=== PATIENT | female | born 1940 | race Caucasian/White ===

== ENCOUNTER 2016-11-11 08:04 | Emergency (ER) | payer OTHER ==
[~2016-11-11] VITALS: Ht 162.6 cm; Wt 91.0 kg
[~2016-11-11 08:04] MED LIST: DENO60SO IV; ELQ25 PO; SIMV40TA2 PO; TPRSR50 PO; VALS1TAB33 PO
[2016-11-11 08:15] VITALS: O2SAT 89; Ht 162.6 cm; Wt 91.0 kg
[2016-11-11 08:31] LABS: BASO % 0.2 %; BASO ABS # 0.02 K/uL (0-0.2); COMPLETE YES; EOS % 1.3 %; HEMATOCRIT 49.4 % (37-47); IG% 0.4 %; LYMPH % 19.8 %; LYMPH ABS # 2.51 K/uL (1.2-3.4); MEAN CELL VOLUME 95.9 fL (80-100); MEAN CORPUSCULAR HEMOGLOBIN 31.3 pg (25-34); MEAN CORPUSCULAR HGB CONC 32.6 g/dl (32-36); MEAN PLATELET VOLUME 10.4 fL (7.4-10.4); MONO % 4.8 %; NEUT % 73.5 %; PLATELET COUNT 277 K/uL (130-400); RED BLOOD COUNT 5.15 M/uL (4.2-5.4); WHITE BLOOD COUNT 12.68 K/uL (4.8-10.8)
[2016-11-11 08:46] LABS: BUN/CREATININE RATIO 15.6 (10-20); CALCIUM 9.5 mg/dl (8.5-10.1); MAGNESIUM 2.2 mg/dl (1.8-2.4)
--- NOTE | 2016-11-11 08:52 | DIAGNOSTIC IMAGING REPORT ---
CHEST ONE VIEW PORTABLE HISTORY: 76 years-old Female EVALUATE WEAKNESS acute weakness. Initial exam. COMPARISON: Chest radiograph 09/27/2015 TECHNIQUE: Portable upright AP view of the chest FINDINGS: Cardiac silhouette is moderately enlarged, unchanged. There is atherosclerosis of the aorta. Pulmonary vascular congestion is present without overt pulmonary edema. There is no pneumothorax. Coarsened interstitial opacities are present within the lung bases suggesting some scarring with ill-defined hazy right basilar opacities noted suggesting atelectasis. The bones are grossly intact. IMPRESSION: 1. Cardiomegaly with pulmonary vascular congestion and chronic background interstitial coarsening. No overt pulmonary edema. 2. Subsegmental right basilar opacities suggest atelectasis. The above report was generated using voice recognition software. It may contain grammatical, syntax or spelling errors. Electronically signed by: Seamus Saldana M.D. 11/11/2016 8:50 AM Dictated Date/Time: 11/11/2016 8:49 AM
[2016-11-11 08:55] LABS: PROTHROMBIN TIME (PATIENT) 10.8 SECONDS (9.0-12.0)
[2016-11-11 08:57] LABS: THYROID STIMULATING HORMONE 3.8 uIu/ml (0.300-4.500)
[2016-11-11] MEDS ORDERED: FUROSEMIDE 40 MG/4 ML VIAL IV STA (09:45)
[2016-11-11] MEDS ORDERED: CEFTRIAXONE SOD INJ 1 GM ADDVIAL IV STA (09:45)
[2016-11-11] MEDS ORDERED: NITROGLYCERIN OINT 2% 1GM PACKET EXT ONE (09:45)
[2016-11-11] MEDS ORDERED: ALBUT/IPRATROP 3MG/0.5MG NEB 3 ML VIAL INH STA (09:45)
--- NOTE | 2016-11-11 10:43 | EMERGENCY ROOM VISIT NOTE ---
History Report prepared by Geremias: Seymour Martell Under the Supervision of: Dr. Alphonse Price M.D. First contact with patient: 08:22 Chief Complaint: SHORTNESS OF BREATH Stated Complaint: SHORTNESS OF BREATH/HEADACHE Nursing Triage Summary: Patient woke up today with a headache and reports she does not normally get headaches. Has also been feeling short of breath for the last 2-3 days. Has been having a productive cough of hernandez sputum. History of Present Illness The patient is a 76 year old female who presents to the Emergency Room with complaints of constant shortness of breath for the past couple of days. The patient additionally is complaining of a headache that started last night. The patient states that she has a history of a CVA, and she has not had a headache since then, and she is worried. She additionally has a cough, and she vomited in the ambulance prior to arrival. She states that she has been coughing up mucous, and she states that she is not normally on oxygen or inhalers at home. The patient has a history of hypertension and A-fib, and left heart catheterization. She states that she is on eliquis. She denies any history of pneumonia or other lung issues. She states that she used to smoke, and she quit in May. Pt denies LOC, fevers, chills, diaphoresis, visual changes, neck pain , chest pain, abdominal pain, back pain, melena, hematochezia, urinary symptoms , numbness, weakness, lymphadenopathy, rash, or other complaints. Source of History: patient Onset: 2-3 days ago Position: other (global ) Quality: other (shortness of breath) Timing: constant Associated Symptoms: + headache, + cough, + vomiting Review of Systems See HPI for pertinent positives and negatives. A total of ten systems were reviewed and were otherwise negative. Past Medical & Surgical Medical Problems: (1) No history of respiratory disorder Family History No pertinent family history Social History Smoking Status: Former Smoker Drug Use: none Marital Status: Occupation Status: retired Current/Historical Medications Scheduled Apixaban (Eliquis), 5 MG PO BID Denosumab (Prolia), 60 MG IV UD Metoprolol Succinate (Metoprolol Succinate ER), 50 MG PO BID Simvastatin (Zocor), 40 MG PO QPM Allergies Coded Allergies: No Known Allergies (Unverified , 11/11/16) Physical Exam Vital Signs Date Time Temp Pulse Resp B/P (MAP) Pulse Ox O2 Delivery O2 Flow Rate FiO2 11/11/16 12:30 88 20 133/92 95 Room Air 11/11/16 12:16 161/78 11/11/16 12:09 88 19 11/11/16 12:05 133/83 11/11/16 12:02 133/83 11/11/16 11:54 92 21 130/99 11/11/16 11:54 87 130/99 11/11/16 11:47 100/60 11/11/16 11:47 100/60 11/11/16 11:45 95 129/73 11/11/16 11:42 129/73 11/11/16 11:39 85 22 96 11/11/16 11:31 193/118 11/11/16 11:28 95 26 224/128 94 11/11/16 11:27 224/128 11/11/16 11:24 85 23 94 11/11/16 10:39 79 19 97 11/11/16 10:35 223/139 11/11/16 10:34 91 22 223/139 96 Nasal Cannula 4.0 11/11/16 10:31 213/175 11/11/16 10:28 229/145 11/11/16 10:24 76 23 98 11/11/16 10:14 79 214/152 99 Nasal Cannula 4.0 11/11/16 10:09 84 23 98 11/11/16 10:07 214/152 11/11/16 10:02 222/125 11/11/16 09:54 71 24 95 11/11/16 09:39 67 24 99 11/11/16 09:34 94 29 11/11/16 09:32 194/138 11/11/16 09:04 73 24 100 11/11/16 09:01 192/134 11/11/16 08:56 186/112 11/11/16 08:55 81 186/112 100 Nasal Cannula 4.0 11/11/16 08:34 80 29 90 11/11/16 08:16 90 11/11/16 08:15 89 Nasal Cannula 4.0 11/11/16 08:15 88 Nasal Cannula 4.0 11/11/16 08:15 89 Nasal Cannula 4.0 11/11/16 08:15 98 147/119 89 Nasal Cannula 4.0 11/11/16 08:10 147/119 Physical Exam GENERAL: Awake, alert, tired-appearing, in no distress HENT: Normocephalic, atraumatic. Oropharynx unremarkable. EYES: Normal conjunctiva. Sclera non-icteric. PERRLA NECK: Supple. No nuchal rigidity. FROM. No JVD. RESPIRATORY: Clear to auscultation. CARDIAC: Irregular rate, normal rhythm. Extremities warm and well perfused. Pulses equal. ABDOMEN: Soft, non-distended. No tenderness to palpation. No rebound or guarding. No masses. RECTAL: Deferred. MUSCULOSKELETAL: Chest examination reveals no tenderness. The back is symmetrical on inspection without obvious abnormality. There is no CVA tenderness to palpation. No joint edema. LOWER EXTREMITIES: Calves are equal size bilaterally and non-tender. No edema. No discoloration. NEURO: Normal sensorium. No sensory or motor deficits noted. No drift. Speech is slow but clear. Cranial nerves intact. SKIN: No rash or jaundice noted. Medical Decision & Procedures ER Provider Diagnostic Interpretation: Radiology results as stated below per my review and radiologist interpretation: CHEST ONE VIEW PORTABLE HISTORY: 76 years-old Female EVALUATE WEAKNESS acute weakness. Initial exam. COMPARISON: Chest radiograph 09/27/2015 TECHNIQUE: Portable upright AP view of the chest FINDINGS: Cardiac silhouette is moderately enlarged, unchanged. There is atherosclerosis of the aorta. Pulmonary vascular congestion is present without overt pulmonary edema. There is no pneumothorax. Coarsened interstitial opacities are present within the lung bases suggesting some scarring with ill-defined hazy right basilar opacities noted suggesting atelectasis. The bones are grossly intact. IMPRESSION: 1. Cardiomegaly with pulmonary vascular congestion and chronic background interstitial coarsening. No overt pulmonary edema. 2. Subsegmental right basilar opacities suggest atelectasis. The above report was generated using voice recognition software. It may contain grammatical, syntax or spelling errors. Electronically signed by: Seamus Saldana M.D. 11/11/2016 8:50 AM Dictated Date/Time: 11/11/2016 8:49 AM HEAD WITHOUT CONTRAST (CT) CLINICAL HISTORY: 76 years-old Female with headache, on anticoagulation. Acute headache while on anticoagulation therapy. TECHNIQUE: Multiple axial CT images of the head were obtained without contrast. A dose lowering technique was utilized adhering to the principles of ALARA. CT DOSE: 638.56 mGycm COMPARISON: None available. FINDINGS: There is extensive acute subarachnoid hemorrhage of the right cerebral hemisphere, predominately involving the right temporal lobe, right operculum, adam fissure and right insula. Mild layering extra-axial hemorrhage is also seen along the right parietal lobe near the vertex appears subarachnoid. No significant mass effect or midline shift. There is moderate background cerebral atrophy. Encephalomalacia related to chronic infarction noted within the left frontal lobe MCA and ELIAS distributions. Background chronic microvascular ischemic changes are noted. No calvarial fracture. Areas of subcutaneous emphysema are noted within the left mandibular tissues and infratemporal fossa as well as within the region of the left periorbital tissues and left cavernous sinus. IMPRESSION: 1. Extensive acute subarachnoid hemorrhage of the right cerebral hemisphere, predominantly involving the right temporal lobe, operculum, adam fissure and insula. Mild layering extra-axial hemorrhage is also seen along the right parietal lobe near the vertex which is also likely subarachnoid. No significant mass effect or midline shift. 2. Background atrophy with remote left frontal infarction and chronic microvascular ischemic changes. 3. Subcutaneous emphysema of the left facial soft tissues and cavernous sinus as above likely related to iatrogenic venous air, correlate clinically for soft tissue injury. Emergent findings were discussed with Dr. Price on 11/11/2016 at 11:10 AM The above report was generated using voice recognition software. It may contain grammatical, syntax or spelling errors. Electronically signed by: Seamus Saldana M.D. 11/11/2016 11:15 AM Dictated Date/Time: 11/11/2016 11:06 AM Laboratory Results 11/11/16 07:40 Red Blood Count 5.15, Mean Corpuscular Volume 95.9, Mean Corpuscular Hemoglobin 31.3, Mean Corpuscular Hemoglobin Concent 32.6, Mean Platelet Volume 10.4, Neutrophils (%) (Auto) 73.5, Lymphocytes (%) (Auto) 19.8, Monocytes (%) (Auto) 4.8, Eosinophils (%) (Auto) 1.3, Basophils (%) (Auto) 0.2, Neutrophils # (Auto) 9.33, Lymphocytes # (Auto) 2.51, Monocytes # (Auto) 0.61, Eosinophils # (Auto) 0.16, Basophils # (Auto) 0.02 11/11/16 07:40 Test 11/11/16 07:40 11/11/16 08:52 White Blood Count 12.68 K/uL (4.8-10.8) Red Blood Count 5.15 M/uL (4.2-5.4) Hemoglobin 16.1 g/dL (12.0-16.0) Hematocrit 49.4 % (37-47) Mean Corpuscular Volume 95.9 fL (80-100) Mean Corpuscular Hemoglobin 31.3 pg (25-34) Mean Corpuscular Hemoglobin Concent 32.6 g/dl (32-36) Platelet Count 277 K/uL (130-400) Mean Platelet Volume 10.4 fL (7.4-10.4) Neutrophils (%) (Auto) 73.5 % Lymphocytes (%) (Auto) 19.8 % Monocytes (%) (Auto) 4.8 % Eosinophils (%) (Auto) 1.3 % Basophils (%) (Auto) 0.2 % Neutrophils # (Auto) 9.33 K/uL (1.4-6.5) Lymphocytes # (Auto) 2.51 K/uL (1.2-3.4) Monocytes # (Auto) 0.61 K/uL (0.11-0.59) Eosinophils # (Auto) 0.16 K/uL (0-0.5) Basophils # (Auto) 0.02 K/uL (0-0.2) RDW Standard Deviation 46.4 fL (36.4-46.3) RDW Coefficient of Variation 13.4 % (11.5-14.5) Immature Granulocyte % (Auto) 0.4 % Immature Granulocyte # (Auto) 0.05 K/uL (0.00-0.02) Prothrombin Time 10.8 SECONDS (9.0-12.0) Prothromb Time International Ratio 1.0 (0.9-1.1) Activated Partial Thromboplast Time 26.8 SECONDS (21.0-31.0) Partial Thromboplastin Ratio 1.0 Anion Gap 10.0 mmol/L (3-11) Est Creatinine Clear Calc Drug Dose 50.7 ml/min Estimated GFR () 62.5 Estimated GFR (Non- 53.9 BUN/Creatinine Ratio 15.6 (10-20) Calcium Level 9.5 mg/dl (8.5-10.1) Magnesium Level 2.2 mg/dl (1.8-2.4) Total Bilirubin 0.9 mg/dl (0.2-1) Direct Bilirubin 0.2 mg/dl (0-0.2) Aspartate Amino Transf (AST/SGOT) 25 U/L (15-37) Alanine Aminotransferase (ALT/SGPT) 29 U/L (12-78) Alkaline Phosphatase 83 U/L (45-117) Troponin I 0.028 ng/ml (0-0.045) Pro-B-Type Natriuretic Peptide 5618 pg/ml (0-1800) Total Protein 8.0 gm/dl (6.4-8.2) Albumin 3.8 gm/dl (3.4-5.0) Lipase 116 U/L (73-393) Thyroid Stimulating Hormone (TSH) 3.800 uIu/ml (0.300-4.500) Bedside Lactic Acid Venous 1.06 mmol/L (0.90-1.70) Laboratory results reviewed by me Medications Administered Medications (Trade) Dose Ordered Sig/Aurea Route Start Time Stop Time Status Last Admin Dose Admin Nitroglycerin (Nitroglycerin 2% Oint) 1 inch NOW ONCE EXT 11/11/16 09:45 11/11/16 09:47 DC 11/11/16 10:07 1 INCH Furosemide (Lasix Inj) 40 mg NOW STAT IV 11/11/16 09:45 11/11/16 09:47 DC 11/11/16 11:18 40 MG Ceftriaxone Sodium (Rocephin Inj) 1 gm NOW STAT IV 11/11/16 09:45 11/11/16 09:47 DC 11/11/16 10:07 1 GM Albuterol/ Ipratropium (Duoneb) 3 ml NOW STAT INH 11/11/16 09:45 11/11/16 09:47 DC 11/11/16 10:07 3 ML Nicardipine HCl 25 mg/Sodium Chloride 250 ml @ 0 mls/hr Q0M STAT IV 11/11/16 11:29 11/11/16 11:30 DC 11/11/16 11:29 50 MLS/HR Ondansetron HCl (Zofran Inj) 4 mg STK-MED ONCE .ROUTE 11/11/16 12:44 11/11/16 12:45 DC 11/11/16 12:47 4 MG ECG Indication: SOB/dyspnea Rate (beats per minute): 84 Rhythm: atrial fibrillation Findings: PVC, T-wave inversion (Lateral) Comparison ECG Date: 09/27/15 Change: Lateral T-wave inversions are new ED Course 0841: The patient was evaluated in room B8. A complete history and physical exam was performed. 0945: DuoNeb 3ml INH, Rocephin Inj 1gm IV, Lasix Inj 40mg IV, Nitroglycerin 2% Oint 1 inch EXT 1001: I reevaluated the patient, and she was resting. 1113: I reevaluated the patient, and she was comfortable with no headache. 1124: I discussed the patient's case with Dr. Benson, [facility], and he suggests that the patient should be transferred to the ICU 1129: Nicardipine HCL 25mg/ Sodium Chloride 50mls/hr IV 1134: I discussed the patient's case with the ICU doctor at [facility], and he is going to accept the patient as a transfer. 1236: I revaluated the patient, and she was doing well. 1244: Zofran Inj 4mg IV 1250: I talked with life flight for the patient. Medical Decision Triage Nursing notes reviewed. The patient's presentation and history were concerning for shortness of breath and headache. Etiologies such as pneumonia, COPD, reactive airway disease, CHF, cardiac ischemia, pulmonary embolism, pneumothorax, musculoskeletal, infections, gastrointestinal, CVA, TIA, intracranial bleed, migraine, meningitis, as well as others were entertained. The patient was evaluated. She had resolution of her headache. She was hypoxic. This was corrected with nasal cannula oxygen. She felt better with this. Chest x-ray was performed as above. The patient had a mild leukocytosis on CBC. Her BNP was elevated concerning for CHF. Troponin was negative. The patient was given a dose of IV Lasix. Nitro paste was applied. IV Rocephin was given. The patient was also given a DuoNeb. CT scan was performed as above. The patient will need to be admitted to the hospital. She denies any history of CHF. She was a former smoker. There is likely a component of COPD. The patient underwent CT imaging of her head. This was concerning for a subarachnoid hemorrhage. The patient was reassessed. Her headache was resolved. She was still significantly hypertensive. Consultation was made with [facility] neurosurgery and critical care. The patient was accepted in transfer. She was started on nicardipine. Her blood pressure dropped and the Nitropaste and nicardipine were held. Prior to transfer she was hemodynamically stable. She was neurologically intact and had no headache. The flight crew was briefed. The nicardipine drip was sent with the flight crew in case her blood pressure increases. The patient consented to transfer. Imaging and paperwork compiled. The patient was pleased with the treatment and transferred in stable condition. Medication Reconcilliation Current Medication List: was personally reviewed by me Blood Pressure Screening Patient's blood pressure: Elevated blood pressure Referred to neurosurgery and critical care. Consults Time Called: 1123 Consulting Physician: Dr. Benson, [facility] Returned Call: [phone] I discussed the patient's case with Dr. Benson, [facility], and he suggests that the patient should be transferred to the ICU Impression Primary Impression: Subarachnoid hemorrhage Additional Impressions: CHF (congestive heart failure) COPD (chronic obstructive pulmonary disease) Critical Care I have personally spent greater than 60 minutes of critical care time in the direct management of this patient. This includes bedside care, interpretation of diagnostic studies, and testing, discussion with consultants, patient, and family members, and other required patient management activities. This 60 minutes is in excess of all separately billable procedures. Scribe Attestation The scribe's documentation has been prepared under my direction and personally reviewed by me in its entirety. I confirm that the note above accurately reflects all work, treatment, procedures, and medical decision making performed by me. Departure Information Dispostion Transfer Acute Care Facility Referrals Devante Almonte (PCP) Patient Instructions [facility] Problem Qualifiers
--- NOTE | 2016-11-11 11:16 | DIAGNOSTIC IMAGING REPORT ---
HEAD WITHOUT CONTRAST (CT) CLINICAL HISTORY: 76 years-old Female with headache, on anticoagulation. Acute headache while on anticoagulation therapy. TECHNIQUE: Multiple axial CT images of the head were obtained without contrast. A dose lowering technique was utilized adhering to the principles of ALARA. CT DOSE: 638.56 mGycm COMPARISON: None available. FINDINGS: There is extensive acute subarachnoid hemorrhage of the right cerebral hemisphere, predominately involving the right temporal lobe, right operculum, adam fissure and right insula. Mild layering extra-axial hemorrhage is also seen along the right parietal lobe near the vertex appears subarachnoid. No significant mass effect or midline shift. There is moderate background cerebral atrophy. Encephalomalacia related to chronic infarction noted within the left frontal lobe MCA and ELIAS distributions. Background chronic microvascular ischemic changes are noted. No calvarial fracture. Areas of subcutaneous emphysema are noted within the left mandibular tissues and infratemporal fossa as well as within the region of the left periorbital tissues and left cavernous sinus. IMPRESSION: 1. Extensive acute subarachnoid hemorrhage of the right cerebral hemisphere, predominantly involving the right temporal lobe, operculum, adam fissure and insula. Mild layering extra-axial hemorrhage is also seen along the right parietal lobe near the vertex which is also likely subarachnoid. No significant mass effect or midline shift. 2. Background atrophy with remote left frontal infarction and chronic microvascular ischemic changes. 3. Subcutaneous emphysema of the left facial soft tissues and cavernous sinus as above likely related to iatrogenic venous air, correlate clinically for soft tissue injury. Emergent findings were discussed with Dr. Price on 11/11/2016 at 11:10 AM The above report was generated using voice recognition software. It may contain grammatical, syntax or spelling errors. Electronically signed by: Seamus Saldana M.D. 11/11/2016 11:15 AM Dictated Date/Time: 11/11/2016 11:06 AM
[2016-11-11] MEDS ORDERED: NiCARDipine IV 25 MG in SODIUM CHLORIDE 0.9% 250ML 240 ML IV STA (11:29)
[2016-11-11 12:30] VITALS: BP 133/92; PULSE 88; O2SAT 95
[2016-11-11] MEDS ORDERED: ONDANSETRON INJ 2 MG/ML 2 ML VIAL ONE (12:44)
== END 2016-11-11 12:50 | disposition short-term general hospital (02) ==
LOC: EDBD 08:04 → C.EDB 08:05
DX: I60.9 Nontraumatic subarachnoid hemorrhage, unspecified (principal); I50.9 Heart failure, unspecified; J44.9 Chronic obstructive pulmonary disease, unspecified; I11.0 Hypertensive heart disease with heart failure; I48.91 Unspecified atrial fibrillation; Z79.01 Long term (current) use of anticoagulants; Z87.891 Personal history of nicotine dependence; Z79.899 Other long term (current) drug therapy

== ENCOUNTER 2017-03-27 13:54 | Emergency (ER) | payer OTHER ==
[~2017-03-27 13:54] MED LIST changes: -VALS1TAB33 PO
[2017-03-27] MEDS ORDERED: SODIUM CHLORIDE 0.9% 10ML FLUSH IV ONE (13:57)
[2017-03-27] MEDS ORDERED: KETAMINE HCL INJ 50 MG/ML 10 ML VIAL IV ONE (13:57)
[2017-03-27] MEDS ORDERED: ROCURONIUM BROMIDE 10 MG/ML 10 ML VIAL IV ONE (13:57)
[2017-03-27 14:02] VITALS: TEMP 36.4
--- NOTE | 2017-03-27 14:24 | DIAGNOSTIC IMAGING REPORT ---
HEAD WITHOUT CONTRAST (CT) CLINICAL HISTORY: 76 years-old Female with fall. Acute head injury with altered mental status status post fall TECHNIQUE: Multiple axial CT images of the head were obtained without contrast. A dose lowering technique was utilized adhering to the principles of ALARA. CT DOSE: 1014.92 mGy.cm COMPARISON: Head CT 11/11/2016. FINDINGS: There is a large hemorrhagic collection measuring 4.6 x 3.3 cm within the left parietal lobe which appears to be intra-axial with intraventricular extension into the atria and posterior horn left lateral ventricle. Moderate associated vasogenic edema. Hemorrhage layering along the falx cerebri appears to be subarachnoid hemorrhage. There is resolution of the previously noted extensive subarachnoid hemorrhage of the right cerebral hemisphere seen on comparison study. Mild rightward midline shift of 3 mm. Suprasellar and quadrigeminal plate cisterns appear maintained. Moderate atrophy with ex vacuo ventriculomegaly. Encephalomalacia from remote infarction is seen involving the left frontal lobe. Chronic microvascular ischemic changes are noted. No territorial infarction. Senescent calcifications of the lentiform nuclei are noted. No calvarial fracture. Mastoid air cells and middle ear cavities are clear. Moderate mucosal thickening of the ethmoid air cells with mild sphenoid, frontal and maxillary sinus disease with small air-fluid level of the right sphenoid sinus compatible with acute sinusitis. Mild right parietal scalp soft tissue swelling without large hematoma or opaque foreign body. Orbits are unremarkable. IMPRESSION: 1. Large intra-axial hemorrhage of the left parietal lobe measures up to 4.6 cm with considerable amount of surrounding vasogenic edema resulting in 3 mm rightward midline shift. There is intraventricular extension of the hemorrhage which extends into the atria and posterior horn left lateral ventricle. No definite hydrocephalus. 2. Extra-axial hemorrhage adjacent to the falx cerebri suggest subarachnoid hemorrhage. 3. Atrophy with chronic microvascular ischemic changes. Remote infarction of the left frontal lobe. Emergent findings were discussed with Dr. Sims on 03/27/2017 at 2:22 PM The above report was generated using voice recognition software. It may contain grammatical, syntax or spelling errors. Electronically signed by: Seamus Saldana M.D. 03/27/2017 2:23 PM Dictated Date/Time: 03/27/2017 2:15 PM
[2017-03-27] MEDS ORDERED: PROTHROMBIN COMP CONC- KCENTRA 2,000 UNIT in SYRINGE 0 ML IV STA (14:30)
--- NOTE | 2017-03-27 14:30 | DIAGNOSTIC IMAGING REPORT ---
CERVICAL SPINE W/O CLINICAL HISTORY: 76 years-old Female with fall. Acute neck injury status post fall with altered mental status COMPARISON: CT head of same day. TECHNIQUE: Multiple axial CT images of the cervical spine were obtained without contrast. A dose lowering technique was utilized adhering to the principles of ALARA. FINDINGS: There is no acute fracture or subluxation identified. Appear mildly demineralized. Posterior elements appear intact. Multilevel intervertebral disc space narrowing, endplate spurring and facet arthrosis. There is severe intervertebral disc space narrowing with broad-based posterior disc osteophyte complex formation at the C6-C7 level. Severe facet arthrosis noted on the left at C4-C5. Degree of central canal and foraminal narrowing is better assessed by MRI. Severe right foraminal narrowing noted on the right at C5-C6 and C6-C7 with moderate to severe right foraminal narrowing seen at C3-C4. Thyroid appears heterogeneous. Partially imaged pleural-based 3 mm nodule right upper lobe is indeterminate. Mild biapical pleural-parenchymal scarring. Atherosclerosis of the carotid vasculature. Mastoid air cells are clear. Image intracranial structures demonstrate no acute abnormality. IMPRESSION: 1. No acute cervical spine fracture or subluxation. 2. Multilevel intervertebral disc space narrowing, endplate spurring and facet arthrosis as above. The above report was generated using voice recognition software. It may contain grammatical, syntax or spelling errors. Electronically signed by: Seamus Saldana M.D. 03/27/2017 2:28 PM Dictated Date/Time: 03/27/2017 2:24 PM
[2017-03-27] MEDS ORDERED: NiCARDipine IV 25 MG in SODIUM CHLORIDE 0.9% 250ML 240 ML IV STA (14:43)
[2017-03-27 14:44] LABS: BASO % 0.1 %; BASO ABS # 0.01 K/uL (0-0.2); EOS % 0.1 %; EOS ABS # 0.01 K/uL (0-0.5); HEMATOCRIT 51.8 % (37-47); IG# 0.03 K/uL (0.00-0.02); LYMPH % 12.6 %; LYMPH ABS # 1.63 K/uL (1.2-3.4); MEAN CORPUSCULAR HGB CONC 34.7 g/dl (32-36); MEAN PLATELET VOLUME 10.6 fL (7.4-10.4); MONO ABS # 1.04 K/uL (0.11-0.59); NEUT ABS # 10.22 K/uL (1.4-6.5); PLATELET COUNT 184 K/uL (130-400); RED CELL DISTRIBUTION WIDTH CV 13.6 % (11.5-14.5); RED CELL DISTRIBUTION WIDTH SD 45.7 fL (36.4-46.3); WHITE BLOOD COUNT 12.94 K/uL (4.8-10.8)
[2017-03-27] MEDS ORDERED: LEVETIRACETAM IV 2,000 MG in DEXTROSE 5% 250ML 250 ML IV ONE (14:45)
[2017-03-27] MEDS ORDERED: PROTHROMBIN COMP CONC- KCENTRA 2,000 UNIT in SYRINGE 0 ML IV SCH (14:45)
[2017-03-27] MEDS ORDERED: RAPID SEQUENCE INDUCTION BAG ONE (14:48)
[2017-03-27 14:49] LABS: INR 1.1 (0.9-1.1); PTT PATIENT 26.2 SECONDS (21.0-31.0)
[2017-03-27] MEDS ORDERED: LABETALOL HCL IV 5 MG/ML 20ML IV STA ×2 (14:49→18:12)
--- NOTE | 2017-03-27 14:54 | DIAGNOSTIC IMAGING REPORT ---
SINGLE VIEW PELVIS CLINICAL HISTORY: Fall. FINDINGS: 2 AP portable views of the pelvis are obtained. No prior studies are available for comparison at the time of dictation. The skeletal structures are osteopenic. There is no radiographic evidence of acute fracture involving the hips or bony pelvis. Sclerotic change is seen in the sacroiliac joints and pubic symphysis. Mild arthritic change is observed in the hips. The overlying soft tissues are within normal limits. Phleboliths are identified in the pelvis. IMPRESSION: Osteopenia and arthritic change as above. There is no radiographic evidence of fracture in the hips or bony pelvis. Electronically signed by: Lauri Lindo M.D. 03/27/2017 2:52 PM Dictated Date/Time: 03/27/2017 2:51 PM
--- NOTE | 2017-03-27 14:54 | DIAGNOSTIC IMAGING REPORT ---
CHEST ONE VIEW PORTABLE CLINICAL HISTORY: 76 years-old Female presenting with Sepsis. TECHNIQUE: Portable upright AP view of the chest was obtained. COMPARISON: 11/11/2016. FINDINGS: Atherosclerosis of aortic arch. Cardiac silhouette enlarged. Decreased prominence of pulmonary vasculature. Mild bronchial wall thickening may be present. Lungs and pleural spaces clear. Osseous structures normal. Upper abdomen normal. IMPRESSION: 1. Mild bronchial wall thickening could indicate bronchitis or congestive change. 2. Cardiomegaly. No carole volume overload or pulmonary edema. Electronically signed by: Allan Heath M.D. 03/27/2017 2:52 PM Dictated Date/Time: 03/27/2017 2:51 PM
[2017-03-27 14:55] VITALS: O2SAT 96
[2017-03-27 15:00] LABS: ALBUMIN 3.1 gm/dl (3.4-5.0); ALT/SGPT 36 U/L (12-78); BLOOD UREA NITROGEN 23 mg/dl (7-18); CALCIUM 9.4 mg/dl (8.5-10.1); CARBON DIOXIDE 23 mmol/L (21-32); CREATININE 1.13 mg/dl (0.60-1.20); GLUCOSE 130 mg/dl (70-99); LIPASE 96 U/L (73-393); POTASSIUM 3.7 mmol/L (3.5-5.1); SODIUM 138 mmol/L (136-145)
[2017-03-27] MEDS ORDERED: FURO-85 PO (15:04)
[2017-03-27] MEDS ORDERED: ATOR-24 PO (15:04)
[2017-03-27] MEDS ORDERED: TPRSR25 PO (15:04)
[2017-03-27] MEDS ORDERED: LISI-789 PO (15:04)
[2017-03-27] MEDS ORDERED: SODIUM CHLORIDE 0.9% 1000ML 1,000 ML IV STA ×2 (15:12→16:09)
[2017-03-27] MEDS ORDERED: PIPERACILLIN/TAZOBACTAM 4.5 GM/100ML D5W IV STA (15:12)
[2017-03-27 15:19] LABS: ALKALINE PHOSPHATASE 83 U/L (45-117); AST/SGOT 93 U/L (15-37); CKMB 22.6 ng/ml (0.5-3.6); PHOSPHORUS 3.5 mg/dl (2.5-4.9); TOTAL PROTEIN 7.4 gm/dl (6.4-8.2)
--- NOTE | 2017-03-27 15:50 | EMERGENCY ROOM VISIT NOTE ---
History Report prepared by Geremias: Marysol Marinelli Under the Supervision of: Dr. Domo Sahh D.O. First contact with patient: 13:42 Chief Complaint: ALTERED MENTAL STATUS Stated Complaint: AMS History of Present Illness The patient is a 76 year old female who presents to the Emergency Room after being found laying down on the floor of her apartment in a persistent altered mental status today. The patient lives alone and according to EMS, the last time anyone saw the patient was about 2 days ago. Some neighbors knocked on the patient's door last night because they believed she was home, but the patient did not respond or open the door. The patient had a stroke several years ago, but her family was unable to report which side it affected. When EMS picked up the patient she was hypertensive and smelled like she had some bowel movements. HPI is limited due to patient being in an altered mental status. Source of History: patient History Limited By: AMS Onset: today Position: other (mental) Quality: other (altered mental status) Timing: other (persistent) Note: Associated symptoms include: hypertension Review of Systems See HPI for pertinent positives & negatives. A total of 10 systems reviewed and were otherwise negative. Past Medical & Surgical Medical Problems: (1) No history of respiratory disorder (2) Stroke Family History No pertinent family history No pertinent family history. Social History Smoking Status: Former Smoker Smokeless Tobacco Use: No Drug Use: none Marital Status: Housing Status: lives alone Occupation Status: retired Current/Historical Medications Scheduled Apixaban (Eliquis), 5 MG PO BID Atorvastatin (Lipitor), 40 MG PO HS Furosemide (Lasix), 20 MG PO QAM Lisinopril (Zestril), 2.5 MG PO HS Metoprolol Succinate (Metoprolol Succinate ER), 50 MG PO BID Metoprolol Succinate (Metoprolol Succinate ER), 25 MG PO BID Allergies Coded Allergies: No Known Allergies (Unverified , 03/27/17) Physical Exam Vital Signs Date Time Temp Pulse Resp B/P (MAP) Pulse Ox O2 Delivery O2 Flow Rate FiO2 03/27/17 18:41 98 16 100 03/27/17 18:38 162/105 03/27/17 18:37 162/105 03/27/17 18:31 109 16 184/111 100 03/27/17 18:26 174/123 2/9/18 18:21 106 16 100 218 18:16 162/114 18 18:14 117 16 100 18 18:09 179/119 18 18:08 /129 18 18:04 115 16 100 18 18:01 /123 18 17:54 121 16 100 18 17:46 131/103 18 17:44 106 16 100 18 17:34 109 16 100 18 17:31 141/103 18 17:24 105 16 100 18 17:22 108 16 156/101 100 03/27/17 17:19 109 16 100 03/27/17 17:16 156/101 03/27/17 17:13 156/85 03/27/17 17:09 111 16 100 03/27/17 17:01 163/110 03/27/17 16:59 105 16 100 03/27/17 16:54 147/91 03/27/17 16:49 144 16 100 03/27/17 16:46 222/134 03/27/17 16:44 208/131 03/27/17 16:39 168 16 97 03/27/17 16:34 155 16 92 03/27/17 16:32 126/107 03/27/17 16:24 176 16 92 03/27/17 16:19 157 16 95 03/27/17 16:18 100 03/27/17 16:16 94/55 03/27/17 16:09 142 16 100 03/27/17 16:02 96/82 03/27/17 15:59 148 22 87 03/27/17 15:55 100 18 15:50 159/100 03/27/17 15:49 120 21 100 18 15:39 124 27 18 15:38 128/92 18 15:31 /86 18 15:29 114 18 96 18 15:24 120 19 92 18 15:19 116/87 03/27/17 15:16 /84 03/27/17 15:14 118 19 /52 100 18 15:12 71/59 218 15:10 110/ 2 15:04 119 21 91 03/27/17 14:57 152/138 03/27/17 14:55 96 Oxymask 15.0 03/27/17 14:54 127 21 95 03/27/17 14:44 83 24 82 03/27/17 14:37 157 20 173/99 92 Oxymask 03/27/17 14:37 137 24 173/99 92 Nasal Cannula 4.0 03/27/17 14:35 173/99 03/27/17 14:34 75 22 90 03/27/17 14:29 168/147 03/27/17 14:24 128 21 91 03/27/17 14:17 138 03/27/17 14:14 138 29 03/27/17 14:06 Nasal Cannula 4.0 03/27/17 14:02 36.4 150 24 148/119 85 Room Air Physical Exam GENERAL: Listless, responds to verbal stimuli, but does not follow verbal commands. EYES: The conjunctivae are clear. The pupils are round and reactive. Left gaze preference noticed with right side neglect. EARS, NOSE, MOUTH AND THROAT: The nose is without any evidence of any deformity. Mucous membranes are dried tongue is midline NECK: The neck is nontender and supple. RESPIRATORY: Rales were noted throughout, shallowed infection noted. CARDIOVASCULAR: Tachycardic rate and irregular rhythm noted, there no murmurs rubs or gallops normal S1 normal S2 GASTROINTESTINAL: The abdomen is soft. Bowel sounds are present in all quadrants. Abdomen is nontender MUSCULOSKELETAL/EXTREMITIES: Right upper extremity weakness noted. SKIN: Pedal edema bilaterally. There is no obvious evidence of any rash. There are no petechiae, pallor or cyanosis noted. NEUROLOGIC: Speech was dysrhythmic, patient did not appear to be able to form clear words. Medical Decision & Procedures ER Provider Diagnostic Interpretation: Radiology results as stated below per my review and radiologist interpretation: CHEST ONE VIEW PORTABLE CLINICAL HISTORY: 76 years-old Female presenting with post intubation. TECHNIQUE: Portable upright AP view of the chest was obtained. COMPARISON: 03/27/2017. FINDINGS: Endotracheal tube terminates in the proximal right mainstem bronchus. Nasogastric tube terminates below the diaphragm likely within the gastric lumen. Atherosclerosis of the aortic arch. Cardiac silhouette mildly enlarged. Mild prominence of pulmonary vasculature. No focal infiltrate. No large effusion or pneumothorax. Osseous structures normal. Upper abdomen normal. IMPRESSION: 1. Right mainstem bronchus intubation. Repositioning recommended. 2. Evidence of volume overload in the setting of cardiomegaly. No carole pulmonary edema. The report will be called/faxed according to standard departmental protocol. Electronically signed by: Allan Heath M.D. 03/27/2017 4:52 PM Dictated Date/Time: 03/27/2017 4:45 PM CERVICAL SPINE W/O CLINICAL HISTORY: 76 years-old Female with fall. Acute neck injury status post fall with altered mental status COMPARISON: CT head of same day. TECHNIQUE: Multiple axial CT images of the cervical spine were obtained without contrast. A dose lowering technique was utilized adhering to the principles of ALARA. FINDINGS: There is no acute fracture or subluxation identified. Appear mildly demineralized. Posterior elements appear intact. Multilevel intervertebral disc space narrowing, endplate spurring and facet arthrosis. There is severe intervertebral disc space narrowing with broad-based posterior disc osteophyte complex formation at the C6-C7 level. Severe facet arthrosis noted on the left at C4-C5. Degree of central canal and foraminal narrowing is better assessed by MRI. Severe right foraminal narrowing noted on the right at C5-C6 and C6-C7 with moderate to severe right foraminal narrowing seen at C3-C4. Thyroid appears heterogeneous. Partially imaged pleural-based 3 mm nodule right upper lobe is indeterminate. Mild biapical pleural-parenchymal scarring. Atherosclerosis of the carotid vasculature. Mastoid air cells are clear. Image intracranial structures demonstrate no acute abnormality. IMPRESSION: 1. No acute cervical spine fracture or subluxation. 2. Multilevel intervertebral disc space narrowing, endplate spurring and facet arthrosis as above. The above report was generated using voice recognition software. It may contain grammatical, syntax or spelling errors. Electronically signed by: Seamus Saldana M.D. 03/27/2017 2:28 PM Dictated Date/Time: 03/27/2017 2:24 PM CHEST ONE VIEW PORTABLE CLINICAL HISTORY: 76 years-old Female presenting with Sepsis. TECHNIQUE: Portable upright AP view of the chest was obtained. COMPARISON: 11/11/2016. FINDINGS: Atherosclerosis of aortic arch. Cardiac silhouette enlarged. Decreased prominence of pulmonary vasculature. Mild bronchial wall thickening may be present. Lungs and pleural spaces clear. Osseous structures normal. Upper abdomen normal. IMPRESSION: 1. Mild bronchial wall thickening could indicate bronchitis or congestive change. 2. Cardiomegaly. No craole volume overload or pulmonary edema. Electronically signed by: Allan Heath M.D. 03/27/2017 2:52 PM Dictated Date/Time: 03/27/2017 2:51 PM HEAD WITHOUT CONTRAST (CT) CLINICAL HISTORY: 76 years-old Female with fall. Acute head injury with altered mental status status post fall TECHNIQUE: Multiple axial CT images of the head were obtained without contrast. A dose lowering technique was utilized adhering to the principles of ALARA. CT DOSE: 1014.92 mGy.cm COMPARISON: Head CT 11/11/2016. FINDINGS: There is a large hemorrhagic collection measuring 4.6 x 3.3 cm within the left parietal lobe which appears to be intra-axial with intraventricular extension into the atria and posterior horn left lateral ventricle. Moderate associated vasogenic edema. Hemorrhage layering along the falx cerebri appears to be subarachnoid hemorrhage. There is resolution of the previously noted extensive subarachnoid hemorrhage of the right cerebral hemisphere seen on comparison study. Mild rightward midline shift of 3 mm. Suprasellar and quadrigeminal plate cisterns appear maintained. Moderate atrophy with ex vacuo ventriculomegaly. Encephalomalacia from remote infarction is seen involving the left frontal lobe. Chronic microvascular ischemic changes are noted. No territorial infarction. Senescent calcifications of the lentiform nuclei are noted. No calvarial fracture. Mastoid air cells and middle ear cavities are clear. Moderate mucosal thickening of the ethmoid air cells with mild sphenoid, frontal and maxillary sinus disease with small air-fluid level of the right sphenoid sinus compatible with acute sinusitis. Mild right parietal scalp soft tissue swelling without large hematoma or opaque foreign body. Orbits are unremarkable. IMPRESSION: 1. Large intra-axial hemorrhage of the left parietal lobe measures up to 4.6 cm with considerable amount of surrounding vasogenic edema resulting in 3 mm rightward midline shift. There is intraventricular extension of the hemorrhage which extends into the atria and posterior horn left lateral ventricle. No definite hydrocephalus. 2. Extra-axial hemorrhage adjacent to the falx cerebri suggest subarachnoid hemorrhage. 3. Atrophy with chronic microvascular ischemic changes. Remote infarction of the left frontal lobe. Emergent findings were discussed with Dr. Sims on 03/27/2017 at 2:22 PM The above report was generated using voice recognition software. It may contain grammatical, syntax or spelling errors. Electronically signed by: Seamus Saldana M.D. 03/27/2017 2:23 PM Dictated Date/Time: 03/27/2017 2:15 PM SINGLE VIEW PELVIS CLINICAL HISTORY: Fall. FINDINGS: 2 AP portable views of the pelvis are obtained. No prior studies are available for comparison at the time of dictation. The skeletal structures are osteopenic. There is no radiographic evidence of acute fracture involving the hips or bony pelvis. Sclerotic change is seen in the sacroiliac joints and pubic symphysis. Mild arthritic change is observed in the hips. The overlying soft tissues are within normal limits. Phleboliths are identified in the pelvis. IMPRESSION: Osteopenia and arthritic change as above. There is no radiographic evidence of fracture in the hips or bony pelvis. Electronically signed by: Lauri Lindo M.D. 03/27/2017 2:52 PM Dictated Date/Time: 03/27/2017 2:51 PM Laboratory Results 03/27/17 14:25 Red Blood Count 5.63, Mean Corpuscular Volume 92.0, Mean Corpuscular Hemoglobin 32.0, Mean Corpuscular Hemoglobin Concent 34.7, Mean Platelet Volume 10.6, Neutrophils (%) (Auto) 79.0, Lymphocytes (%) (Auto) 12.6, Monocytes (%) (Auto) 8.0, Eosinophils (%) (Auto) 0.1, Basophils (%) (Auto) 0.1, Neutrophils # (Auto) 10.22, Lymphocytes # (Auto) 1.63, Monocytes # (Auto) 1.04, Eosinophils # (Auto) 0.01, Basophils # (Auto) 0.01 03/27/17 14:25 Test 03/27/17 14:25 03/27/17 14:26 03/27/17 14:30 White Blood Count 12.94 K/uL (4.8-10.8) Red Blood Count 5.63 M/uL (4.2-5.4) Hemoglobin 18.0 g/dL (12.0-16.0) Hematocrit 51.8 % (37-47) Mean Corpuscular Volume 92.0 fL (80-100) Mean Corpuscular Hemoglobin 32.0 pg (25-34) Mean Corpuscular Hemoglobin Concent 34.7 g/dl (32-36) Platelet Count 184 K/uL (130-400) Mean Platelet Volume 10.6 fL (7.4-10.4) Neutrophils (%) (Auto) 79.0 % Lymphocytes (%) (Auto) 12.6 % Monocytes (%) (Auto) 8.0 % Eosinophils (%) (Auto) 0.1 % Basophils (%) (Auto) 0.1 % Neutrophils # (Auto) 10.22 K/uL (1.4-6.5) Lymphocytes # (Auto) 1.63 K/uL (1.2-3.4) Monocytes # (Auto) 1.04 K/uL (0.11-0.59) Eosinophils # (Auto) 0.01 K/uL (0-0.5) Basophils # (Auto) 0.01 K/uL (0-0.2) RDW Standard Deviation 45.7 fL (36.4-46.3) RDW Coefficient of Variation 13.6 % (11.5-14.5) Immature Granulocyte % (Auto) 0.2 % Immature Granulocyte # (Auto) 0.03 K/uL (0.00-0.02) Erythrocyte Sedimentation Rate 45 mm/hr (0-21) Prothrombin Time 11.3 SECONDS (9.0-12.0) Prothromb Time International Ratio 1.1 (0.9-1.1) Activated Partial Thromboplast Time 26.2 SECONDS (21.0-31.0) Partial Thromboplastin Ratio 1.0 Venous Blood pH 7.41 (7.36-7.41) Venous Blood Partial Pressure CO2 41 mmHg (38.0-50.0) Venous Blood Partial Pressure O2 38 mmHg Venous Blood HCO3 25 mmol/L Venous Blood Oxygen Saturation 69.6 % Venous Blood Base Excess 0.8 mEq/L Anion Gap 10.0 mmol/L (3-11) Estimated GFR () 53.9 Estimated GFR (Non- 46.5 BUN/Creatinine Ratio 20.1 (10-20) Calcium Level 9.4 mg/dl (8.5-10.1) Phosphorus Level 3.5 mg/dl (2.5-4.9) Magnesium Level 2.2 mg/dl (1.8-2.4) Total Bilirubin 0.9 mg/dl (0.2-1) Aspartate Amino Transf (AST/SGOT) 93 U/L (15-37) Alanine Aminotransferase (ALT/SGPT) 36 U/L (12-78) Alkaline Phosphatase 83 U/L (45-117) Total Creatine Kinase 3478 U/L (26-192) Creatine Kinase MB 22.6 ng/ml (0.5-3.6) Creatine Kinase MB Ratio 0.6 (0-3.0) Troponin I 0.097 ng/ml (0-0.045) C-Reactive Protein 11.10 mg/dl (0-0.29) Pro-B-Type Natriuretic Peptide 5465 pg/ml (0-1800) Total Protein 7.4 gm/dl (6.4-8.2) Albumin 3.1 gm/dl (3.4-5.0) Globulin 4.3 gm/dl (2.5-4.0) Albumin/Globulin Ratio 0.7 (0.9-2) Lipase 96 U/L (73-393) Bedside Lactic Acid Venous 4.04 mmol/L (0.90-1.70) Urine Color DK YELLOW Urine Appearance CLEAR (CLEAR) Urine pH 5.0 (4.5-7.5) Urine Specific [place] 1.030 (1.000-1.030) Urine Protein 2+ (NEG) Urine Glucose (UA) NEG (NEG) Urine Ketones TRACE (NEG) Urine Occult Blood 2+ (NEG) Urine Nitrite NEG (NEG) Urine Bilirubin NEG (NEG) Urine Urobilinogen NEG (NEG) Urine Leukocyte Esterase NEG (NEG) Urine WBC (Auto) 1-5 /hpf (0-5) Urine RBC (Auto) 0-4 /hpf (0-4) Urine Hyaline Casts (Auto) 5-10 /lpf (0-5) Urine Epithelial Cells (Auto) 10-20 /lpf (0-5) Urine Bacteria (Auto) 1+ (NEG) Laboratory results per my review. Medications Administered Medications (Trade) Dose Ordered Sig/Aurea Route Start Time Stop Time Status Last Admin Dose Admin Prothrombin Complex Concent (Human) 2000 unit/ Syringe 80 ml @ 10 mls/min TODAY@1445 IV 03/27/17 14:45 03/27/17 18:00 DC 03/27/17 14:45 10 MLS/MIN Levetiracetam 2000 mg/Dextrose 270 ml @ 999 mls/hr ONE ONCE IV 03/27/17 14:45 03/27/17 15:01 DC 03/27/17 15:12 999 MLS/HR Miscellaneous (Rapid Sequence Induction Bag) 1 ea STK-MED ONCE N/A 03/27/17 14:48 03/27/17 14:49 DC 03/27/17 15:28 1 EA Sodium Chloride 1,000 ml @ 999 mls/hr Q1H1M STAT IV 03/27/17 15:12 03/27/17 16:12 DC 03/27/17 15:00 999 MLS/HR Piperacillin Sod/ Tazobactam Sod (Zosyn Iv) 4.5 gm NOW STAT IV 03/27/17 15:12 03/27/17 15:13 DC 03/27/17 15:39 4.5 GM Sodium Chloride 1,000 ml @ 999 mls/hr Q1H1M STAT IV 03/27/17 16:09 03/27/17 17:09 DC 03/27/17 16:10 999 MLS/HR Labetalol HCl (Normodyne IV) 10 mg NOW STAT IV 03/27/17 18:12 03/27/17 18:13 DC 03/27/17 18:12 10 MG Midazolam HCl (Versed Inj) 2 mg STK-MED ONCE .ROUTE 03/27/17 18:38 03/27/17 18:39 DC 03/27/17 18:41 2 MG Procedure Endotracheal Intubation Indication hemorrhagic CVA and airway protection. The patient was on 100% oxygen via NRB prior to the procedure. Suction, airway equipment, RSI drugs, respiratory equipment, and appropriate personnel were prepared prior to the initiation of the procedure. A time out was taken. Induction was performed with Ketamine and Rocuronium. After observing the clinical benefit of the medications, the airway was easily visualized utilizing a glide scope. A 7.5 size ETT tube was placed atraumatically to 22 cm at lip using standard technique. The cuff inflated without signs of malfunction. There were bilateral breath sounds, positive colormetric change, no gastric sounds, a good capnography waveform, and post procedure pulse oximetry was 96%. Post intubation sedation and paralysis was administered using Ketamine. There were no complications. ECG Indication: altered mental status Rate (beats per minute): 105 Rhythm: atrial fibrillation (with RVR) Findings: other (Diffused ST and T wave abnormalities noted.) Comparison ECG Date: Increased rate, otherwise no change from 11/11/16. Change: The patient's electrocardiogram was interpreted by me. ED Course 1359: The patient was evaluated in room B1. A complete history and physical examination were performed. 1435: I spoke on the phone with the patient's granddaughter, who states she thinks the patient would like to go to a tertiary facility. 1443: Ordered Nicardipine HCL 25mg/ Sodium Chloride 250ml @ 0mls/hr Protocol IV. 1445: Ordered Levetiracetam 270ml @ 999 mls/hr IV and Prothrombin Complex Concent (Human) 2000 unit/Syringe 80ml @ 10 mls/min Protocol IV. 1448: Ordered Rapid Sequence Induction Bag 1ea. 1449: Ordered Normodyne IV 10mg IV. 1505: I discussed the patient's case with Dr. Camacho, ICU . The patient will be evaluated for further management. 1512: Ordered Zosyn IV 4.5 gm IV and Sodium Chloride 1000 ml @ 999 mls/hr IV. 1535: The patient's granddaughter is here. I updated her on test findings and she verbalized complete understanding. The agreed on the treatment plan discussed. 1609: Ordered Sodium Chloride 1000 ml @ 999 mls/hr IV. 1810: [facility] is on their way here to take patient. 1812: Ordered Normodyne IV 10mg IV. 1837: Ordered Versed Inj 2mg IV. 1838: Ordered Versed 2mg. 1856: The patient is being transferred to [facility]. Medical Decision Prior records/ancillary studies reviewed and summarized above. Nursing notes reviewed. Additional history obtained from EMS staff. The patient's history was concerning for altered mental status. Differential diagnosis: Etiologies such as metabolic, infection, hypoglycemia, electrolyte abnormalities , cardiac sources, intracerebral event, toxicologic, neurologic, as well as others were entertained. The patient is a 76-year-old female who presented to the emergency department for possible stroke. The patient has not been seen in greater than 24 hours. She currently has a history of atrial fibrillation and is taking anticoagulation. She was taken directly to CAT scan and was found to have a large left-sided hemorrhagic CVA. The patient's respiratory status was tenuous. She was hypoxic and did not appear to be tolerating her secretions. She was treated with IV blood pressure medication as well as IV anti-seizure prophylaxis. She was treated with IV fluids and IV antibiotics as well. I discussed the patient's laboratory and radiographic studies with her and her granddaughter. She was felt to be a very poor respiratory candidate at this time so she was intubated for airway protection. I discussed her case with the neurosurgical group as well as the ICU attending at [facility]. They have agreed to accept the patient in transfer. She was sent via air ambulance. The patient had multiple episodes of fluctuations in her blood pressure medication. She was treated with fluid boluses as well as IV blood pressure medication. Medication Reconcilliation Current Medication List: was personally reviewed by me Blood Pressure Screening Patient's blood pressure: Elevated blood pressure Blood pressure disposition: Elevated BP felt to be situational Consults Time Called: 1505 Consulting Physician: Dr. Camacho, ICU Returned Call: 1505 I discussed the patient's case with Dr. Camacho, ICU . The patient will be evaluated for further management. Impression Primary Impression: Hemorrhagic cerebrovascular accident (CVA) Additional Impressions: Respiratory failure Rhabdomyolysis Critical Care I have personally spent greater than 120 minutes of critical care time in the direct management of this patient. This includes bedside care, interpretation of diagnostic studies, and testing, discussion with consultants, patient, and family members, and other required patient management activities. These 120 minutes is in excess of all separately billable procedures. Scribe Attestation The scribe's documentation has been prepared under my direction and personally reviewed by me in its entirety. I confirm that the note above accurately reflects all work, treatment, procedures, and medical decision making performed by me. Departure Information Dispostion Transfer Acute Care Facility Referrals Devante Almonte (PCP) Forms HOME CARE DOCUMENTATION FORM, IMPORTANT VISIT INFORMATION Patient Instructions My [facility] Problem Qualifiers Additional Impressions: Respiratory failure Chronicity: acute Respiratory failure complication: hypoxia Qualified Codes : J96.01 - Acute respiratory failure with hypoxia Rhabdomyolysis Rhabdomyolysis type: traumatic Encounter type: initial encounter Qualified Codes: T79.6XXA - Traumatic ischemia of muscle, initial encounter
--- NOTE | 2017-03-27 16:54 | DIAGNOSTIC IMAGING REPORT ---
CHEST ONE VIEW PORTABLE CLINICAL HISTORY: 76 years-old Female presenting with post intubation. TECHNIQUE: Portable upright AP view of the chest was obtained. COMPARISON: 03/27/2017. FINDINGS: Endotracheal tube terminates in the proximal right mainstem bronchus. Nasogastric tube terminates below the diaphragm likely within the gastric lumen. Atherosclerosis of the aortic arch. Cardiac silhouette mildly enlarged. Mild prominence of pulmonary vasculature. No focal infiltrate. No large effusion or pneumothorax. Osseous structures normal. Upper abdomen normal. IMPRESSION: 1. Right mainstem bronchus intubation. Repositioning recommended. 2. Evidence of volume overload in the setting of cardiomegaly. No carole pulmonary edema. The report will be called/faxed according to standard departmental protocol. Electronically signed by: Allan Heath M.D. 03/27/2017 4:52 PM Dictated Date/Time: 03/27/2017 4:45 PM
[2017-03-27] MEDS ORDERED: MIDAZOLAM HCL 5 MG/ML 1 ML VIAL IV STA (18:37)
[2017-03-27 18:38] VITALS: BP 162/105
[2017-03-27] MEDS ORDERED: MIDAZOLAM HCL 1 MG/ML 2ML VIAL ONE (18:38)
[2017-03-27 18:41] VITALS: PULSE 98; O2SAT 100
== END 2017-03-27 17:23 | disposition short-term general hospital (02) ==
LOC: EDBD 13:54 → C.EDB 13:56
DX: I61.9 Nontraumatic intracerebral hemorrhage, unspecified (principal); J96.01 Acute respiratory failure with hypoxia; M62.82 Rhabdomyolysis; I48.91 Unspecified atrial fibrillation; I10 Essential (primary) hypertension; Z86.73 Personal history of transient ischemic attack (TIA), and cerebral infarction without residual deficits; Z87.891 Personal history of nicotine dependence; Z79.01 Long term (current) use of anticoagulants

== ENCOUNTER 2017-04-13 15:09 | Emergency (ER) | payer OTHER ==
[~2017-04-13] VITALS: Ht 167.6 cm; Wt 88.5 kg
[~2017-04-13 15:09] MED LIST changes: +ATOR-24 PO; -DENO60SO IV; +FURO-85 PO; +LISI-789 PEG; -SIMV40TA2 PO; +TPRSR25 PO
[2017-04-13 15:19] VITALS: TEMP 37.1
[2017-04-13] MEDS ORDERED: ALBUT/IPRATROP 3MG/0.5MG NEB 3 ML VIAL INH STA (15:25)
--- NOTE | 2017-04-13 15:28 | EMERGENCY ROOM VISIT NOTE ---
History Report prepared by Geremias: Marysol Marinelli Under the Supervision of: Dr. Luciano Garcia M.D. First contact with patient: 15:12 Stated Complaint: ILLNESS History of Present Illness The patient is an 76 year old female who presents to the Emergency Room with complaints of persistent rhonchi that was noticed earlier today. The patient was sent to the Emergency Department from her retirement. Per retirement staff, the patient was being feed through her feeding tube when they noticed some rhonchi. They reported that the patient's left leg is cyanotic and cold and that her right arm has been flaccid with some movements. The patient is short of breath. HPI is limited due to patient being in respiratory distress. Of note, SNF contacted and it was clarified that new concerns are the patient's shortness of breath and left lower extremity cyanosis. The patient's right- sided paresis is at the patient's recent baseline. Source of History: patient History Limited By: other (respiratory distress) Onset: today Position: other (lungs) Quality: other (rhonchi) Timing: other (persistent) Associated Symptoms: + SOB Note: Associated symptoms include: right left is cyanotic and cold and that her left arm has been flaccid with some movements Review of Systems See HPI for pertinent positives and negatives. A total of ten systems were reviewed and were otherwise negative. Past Medical & Surgical Medical Problems: (1) Acute and chronic respiratory failure with hypoxia (2) Aspiration pneumonia (3) Claudication of lower extremity (4) No history of respiratory disorder (5) Stroke Family History No pertinent family history Social History Smoking Status: Former Smoker Drug Use: none Marital Status: Housing Status: lives alone Occupation Status: retired Current/Historical Medications Scheduled Amlodipine (Norvasc), 10 MG PEG DAILY Enteral Nutrition Formula (Jevity 1.2 [place]), 1 CAN PEG 22HRS Ipratropium-Albuterol (Duoneb), 3 ML INH Q6 Levetiracetam (Keppra), 1,000 MG PEG BID Lisinopril (Zestril), 2.5 MG PEG DAILY Metoprolol Tartrate (Lopressor) (Lopressor), 50 MG PEG BID Nystatin (Topical) (Nystop), 1 APPLN TD BID Oxybutynin Chloride (Ditropan), 5 MG PEG BID Simvastatin (Zocor), 20 MG PEG QPM [Peg Tube Flush], 150 ML PEG UD Scheduled PRN Acetaminophen (Tylenol), 650 MG PEG Q4H PRN for Pain or Fever Allergies Coded Allergies: No Known Allergies (Unverified , 03/27/17) Physical Exam Vital Signs Date Time Temp Pulse Resp B/P (MAP) Pulse Ox O2 Delivery O2 Flow Rate FiO2 04/14/17 01:47 105 22 130/102 96 Nasal Cannula 5.0 04/14/17 01:00 113 22 146/111 97 Nasal Cannula 5.0 04/13/17 23:06 117 22 155/85 95 Room Air 04/13/17 23:00 112 04/13/17 21:08 118 22 143/96 95 Nasal Cannula 4.0 04/13/17 21:01 104 04/13/17 20:12 114 25 169/110 96 Nasal Cannula 4.0 04/13/17 18:19 122 25 174/99 93 Nasal Cannula 4.0 04/13/17 16:58 117 24 131/97 96 Nasal Cannula 4.0 04/13/17 16:47 132 04/13/17 16:14 127 24 136/77 97 Nasal Cannula 4.0 04/13/17 15:34 91 Nasal Cannula 2.0 04/13/17 15:19 37.1 128 22 136/77 90 Room Air Physical Exam GENERAL: Awake, alert, chronically ill-appearing, dyspnea, and in mild respiratory distress. HENT: Normocephalic, atraumatic. Oropharynx with dry MM and otherwise unremarkable. EYES: Normal conjunctiva. Sclera non-icteric. NECK: Supple. No nuchal rigidity. FROM. No JVD. RESPIRATORY: Diminished breath sounds throughout with scattered wheezes and rhonchi. CARDIAC: Tachycardic, IRIR. Equal radial pulses. Monophasic right dopplerable PT , DP, AT. Absent dopplerable pusles LLE, no PT, DP, AT, or popliteal signal. ABDOMEN: Soft, non-distended. No tenderness to palpation. No rebound or guarding. No masses. RECTAL: Deferred. MUSCULOSKELETAL: Chest examination reveals no tenderness. The back is symmetrical on inspection without obvious abnormality. There is no CVA tenderness to palpation. No joint edema. LOWER EXTREMITIES: Calves are equal size bilaterally and non-tender. Scant BLE edema. Left lower leg with cyanosis and cool to touch. Cap refill delayed 5-6 seconds. Intact motor/sensory. NEURO: 0 to 5 strength in right upper and lower extremity. Sensory intact throughout. SKIN: No rash or jaundice noted. Medical Decision & Procedures ER Provider Diagnostic Interpretation: Radiology results as stated below per my review and radiologist interpretation: CHEST ONE VIEW PORTABLE CLINICAL HISTORY: 76 years-old Female presenting with Evaluate Fever/Sepsis. TECHNIQUE: Portable upright AP view of the chest was obtained. COMPARISON: 03/27/2017. FINDINGS: The patient has been estimated. Atherosclerosis of aortic arch. Cardiac silhouette mildly enlarged as on prior exam. Decreased prominence of pulmonary vasculature. Slight elevation of the bilateral hemidiaphragms with hypoventilatory changes. No other focal opacity. No large effusion or pneumothorax. Osseous structures normal. Upper abdomen normal. IMPRESSION: 1. Mildly low lung volumes with hypoventilatory changes and minimal basilar atelectasis. No focal infiltrate to suggest pneumonia. 2. Cardiomegaly. Electronically signed by: Allan Heath M.D. 04/13/2017 3:43 PM Dictated Date/Time: 04/13/2017 3:[address]AST CT DOSE: 537.48 mGy.cm HISTORY: Altered mental status TECHNIQUE: Multiaxial CT images of the head were performed without the use of intravenous contrast. Automated exposure control was utilized for this study. A dose lowering technique was utilized adhering to the principles of ALARA. Comparison: Head CT 03/27/2017. Findings: The fluid level within the right maxillary sinus and sphenoid sinuses. This likely represents acute sinusitis. The mastoid air cells demonstrate trace effusions. No fractures. Improvement in the intracranial hemorrhage compared to the prior study. The dominant interparenchymal focus within the left high convexity measures 3.7 x 2.6 cm. This previously measured 4.6 x 3.3 cm. There is surrounding vasogenic edema. Trace intraventricular hemorrhage has improved. Mild motion artifact. Atrophic changes are again noted within the brain. Encephalomalacia within the left frontal lobe is consistent with an old infarct. This is also unchanged. 4 mm of midline shift is stable to slightly progressed. Subdural hemorrhage has a most completely resolved. Impression: Improvement in the multicompartment intracranial hemorrhage as described above. The 4 mm of right midline shift is stable slightly progressed. Continued follow up is recommended. Sinus disease as described above. Electronically signed by: Jacobo Butler M.D. 04/13/2017 4:31 PM Dictated Date/Time: 04/13/2017 4:25 PM ULTRASOUND L VENOUS DOPP LOWER EXT UNILAT CLINICAL HISTORY: Left lower extremity cyanosis. No obtainable pulse. COMPARISON STUDY: No previous studies for comparison. FINDINGS: Real-time and color flow Doppler imaging were performed. Flow was seen within the femoral, popliteal and calf veins with no intraluminal thrombus demonstrated. The saphenous vein is patent. IMPRESSION: No evidence of left lower extremity DVT. Electronically signed by: Jed Godwin M.D. 04/13/2017 6:06 PM Dictated Date/Time: 04/13/2017 6:06 PM ARTERIAL DOPPLER ULTRASOUND OF THE LEFT LOWER EXTREMITY CLINICAL HISTORY: Left leg pain and discoloration. No obtainable pulse. COMPARISON STUDY: No previous studies for comparison. FINDINGS: The technologist was unable to complete the examination, as the patient requested on multiple occasions to stop the examination. There is monophasic flow within the common femoral artery. There is very low velocity dampened monophasic proximal superficial femoral artery waveforms with minimal color flow. The findings are indicative of an occlusion/subtotal occlusion. There is dampened monophasic flow within the popliteal artery. There is dampened monophasic flow within the posterior tibial artery. Ankle arm indices were not obtained. IMPRESSION: 1. The patient would not allow completion of the examination 2. 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 04/13/2017 6:13 PM Dictated Date/Time: 04/13/2017 6:07 PM Laboratory Results 04/13/17 16:01 Red Blood Count 4.47, Mean Corpuscular Volume 94.6, Mean Corpuscular Hemoglobin 32.0, Mean Corpuscular Hemoglobin Concent 33.8, Mean Platelet Volume 10.3, Neutrophils (%) (Auto) 84.3, Lymphocytes (%) (Auto) 7.2, Monocytes (%) (Auto) 7.9, Eosinophils (%) (Auto) 0.0, Basophils (%) (Auto) 0.1, Neutrophils # (Auto) 16.72, Lymphocytes # (Auto) 1.42, Monocytes # (Auto) 1.56, Eosinophils # (Auto) 0.00, Basophils # (Auto) 0.02 04/13/17 16:01 Test 04/13/17 00:00 04/13/17 15:53 04/13/17 16:01 04/13/17 18:37 Influenza Type A Antigen Neg for Influ A (NEG) Influenza Type B Antigen Neg for Influ B (NEG) Bedside Hemoglobin 16.0 g/dl (12.0-16.0) Bedside Hematocrit 47 % (37-47) Bedside Sodium 139 mEq/L (135-144) Bedside Potassium 4.9 mEq/L (3.3-5.0) Bedside Chloride 100 mEq/L (101-112) Bedside Total CO2 28 mEq/l (24-31) Bedside Blood Urea Nitrogen 50 mg/dl (7-18) Bedside Creatinine 1.7 mg/dl (0.6-1.3) Bedside Glucose (other) 148 mg/dl (70-99) Bedside Ionized Calcium (Alfonso) 1.19 mmol/l (1.12-1.32) White Blood Count 19.82 K/uL (4.8-10.8) Red Blood Count 4.47 M/uL (4.2-5.4) Hemoglobin 14.3 g/dL (12.0-16.0) Hematocrit 42.3 % (37-47) Mean Corpuscular Volume 94.6 fL (80-100) Mean Corpuscular Hemoglobin 32.0 pg (25-34) Mean Corpuscular Hemoglobin Concent 33.8 g/dl (32-36) Platelet Count 275 K/uL (130-400) Mean Platelet Volume 10.3 fL (7.4-10.4) Neutrophils (%) (Auto) 84.3 % Lymphocytes (%) (Auto) 7.2 % Monocytes (%) (Auto) 7.9 % Eosinophils (%) (Auto) 0.0 % Basophils (%) (Auto) 0.1 % Neutrophils # (Auto) 16.72 K/uL (1.4-6.5) Lymphocytes # (Auto) 1.42 K/uL (1.2-3.4) Monocytes # (Auto) 1.56 K/uL (0.11-0.59) Eosinophils # (Auto) 0.00 K/uL (0-0.5) Basophils # (Auto) 0.02 K/uL (0-0.2) RDW Standard Deviation 50.9 fL (36.4-46.3) RDW Coefficient of Variation 14.8 % (11.5-14.5) Immature Granulocyte % (Auto) 0.5 % Immature Granulocyte # (Auto) 0.10 K/uL (0.00-0.02) Prothrombin Time 11.4 SECONDS (9.0-12.0) Prothromb Time International Ratio 1.1 (0.9-1.1) Activated Partial Thromboplast Time 27.5 SECONDS (21.0-31.0) Partial Thromboplastin Ratio 1.1 Venous Blood pH 7.38 (7.36-7.41) Venous Blood Partial Pressure CO2 50 mmHg (38.0-50.0) Venous Blood Partial Pressure O2 28 mmHg Venous Blood HCO3 29 mmol/L Venous Blood Oxygen Saturation < 60.0 % Venous Blood Base Excess 3.0 mEq/L Anion Gap 9.0 mmol/L (3-11) Estimated GFR () 35.4 Estimated GFR (Non- 30.5 BUN/Creatinine Ratio 30.2 (10-20) Lactic Acid Level 1.6 mmol/L (0.4-2.0) Calcium Level 8.8 mg/dl (8.5-10.1) Total Bilirubin 1.0 mg/dl (0.2-1) Direct Bilirubin 0.3 mg/dl (0-0.2) Aspartate Amino Transf (AST/SGOT) 83 U/L (15-37) Alanine Aminotransferase (ALT/SGPT) 156 U/L (12-78) Alkaline Phosphatase 101 U/L (45-117) Troponin I 0.027 ng/ml (0-0.045) Pro-B-Type Natriuretic Peptide 4634 pg/ml (0-1800) Total Protein 6.5 gm/dl (6.4-8.2) Albumin 2.7 gm/dl (3.4-5.0) Lipase 129 U/L (73-393) Urine Color YELLOW Urine Appearance CLOUDY (CLEAR) Urine pH 5.5 (4.5-7.5) Urine Specific [place] 1.021 (1.000-1.030) Urine Protein 2+ (NEG) Urine Glucose (UA) NEG (NEG) Urine Ketones NEG (NEG) Urine Occult Blood 2+ (NEG) Urine Nitrite NEG (NEG) Urine Bilirubin NEG (NEG) Urine Urobilinogen NEG (NEG) Urine Leukocyte Esterase NEG (NEG) Urine WBC (Auto) 1-5 /hpf (0-5) Urine RBC (Auto) 0-4 /hpf (0-4) Urine Hyaline Casts (Auto) 0 /lpf (0-5) Urine Epithelial Cells (Auto) 0-5 /lpf (0-5) Urine Bacteria (Auto) 4+ (NEG) Laboratory results reviewed by me Medications Administered Medications (Trade) Dose Ordered Sig/Aurea Route Start Time Stop Time Status Last Admin Dose Admin Albuterol/ Ipratropium (Duoneb) 3 ml NOW STAT INH 04/13/17 15:25 04/13/17 15:29 DC 04/13/17 15:25 3 ML Methylprednisolone Sodium Succinate (Solu-Medrol IV) 125 mg NOW STAT IV 04/13/17 16:28 04/13/17 16:34 DC 04/13/17 16:52 125 MG Vancomycin HCl 2000 mg/Sodium Chloride 540 ml @ 200 mls/hr ONE STAT IV 04/13/17 16:28 04/13/17 19:09 DC 04/13/17 16:28 200 MLS/HR Cefepime HCl 1000 mg/Dextrose 111 ml @ 200 mls/hr NOW STAT IV 04/13/17 16:28 04/13/17 17:01 DC 04/13/17 16:28 200 MLS/HR Azithromycin 500 mg/Dextrose 255 ml @ 125 mls/hr ONE ONCE IV 04/13/17 16:30 04/13/17 18:32 DC 04/13/17 16:52 125 MLS/HR Sodium Chloride 250 ml @ 999 mls/hr Q16M STAT IV 04/13/17 18:04 04/13/17 18:19 DC 04/13/17 18:04 999 MLS/HR Heparin Sodium/ Dextrose (Heparin 25,000 Unit/500ml D5W) 25,000 unit STK-MED ONCE .ROUTE 04/13/17 19:08 04/13/17 19:09 DC 04/13/17 20:05 25,000 UNIT Metronidazole (Flagyl / Nss) 500 mg NOW STAT IV 04/13/17 19:55 04/13/17 19:57 DC 04/13/17 23:22 500 MG Sodium Chloride 250 ml @ 999 mls/hr Q16M STAT IV 04/13/17 19:55 04/13/17 20:10 DC 04/13/17 23:21 999 MLS/HR Levetiracetam 1000 mg/Dextrose 110 ml @ 440 mls/hr ONE ONCE IV 04/14/17 01:00 04/14/17 01:14 DC 04/14/17 01:05 440 MLS/HR Sodium Chloride 500 ml @ 100 mls/hr Q5H STAT IV 04/14/17 00:49 04/14/17 05:48 04/14/17 01:06 100 MLS/HR ECG Per My Interpretation Indication: altered mental status Rate (beats per minute): 122 Rhythm: atrial fibrillation (with RVR) Findings: no acute ischemic change, left axis deviation Comparison ECG Date: similar to 03/27/17 ED Course 1513: The patient was evaluated in room C2. A complete history and physical exam was performed. 1559: I spoke with the patient's retirement staff, who report that her right sided weakness has been going on for the past year. The respiratory distress and left clonus and discoloration are new. 1624: I discussed the patient with Dr. Monsivais, Cardiology- who agrees on the poor status of the patient and to continue the suggested treatment. He advised that we discuss and reevaluate the patient's case with him again when we have the full report. 1824: I discussed the patient with Dr. Monsivais- cardiology. He suggests that we stick to the original plan and start the patient on a Heparin drip. He recommends that she follow up with him. 183: I discussed the patient with Dr. Valentín [place]: Alfredito - He will evaluate the patient for further treatment. 2012: I spoke with the patient's granddaughter, who seemed for concerned for the patient. She will not be coming to see her. We will keep in contact with updates. 2030: I discussed the patient with Leydi Delarosa. He states that it is probably best to discuss with the neurologist that took care of the patient at [facility]. 2105: I discussed the patient with Leydi Norwood- neurology. He did not know the patient personally but he reviewed the imaging and her chart. He said to avoid heparinization, although if needed for a "life threatening condition like PE", then it should be used in ICU care. 2116: I discussed the patient with Leydi Jimenez. He thinks that in the end it's probably best that the patient gets referred to [facility] because they know her well and that she won't be able to follow up with him anyway because of her insurance. 2137: I updated the granddaughter on the recommendation for transfer. 2205: I discussed the patient with Leydi Islas-University Registrar and Dr. Stokes, Leydi- vascular surgery. They accepted to transfer and admit the patient to [facility]. The patient is ready to be transferred, just awaiting for a bed. Medical Decision I reviewed the patient's past medical history, medications, and the nursing notes as described above. Differential diagnosis: Etiologies such as metabolic, infection, hypo/hyperglycemia, electrolyte abnormalities, cardiac sources, intracerebral event, toxicologic, neurologic, PAD/arterial insufficiency as well as others were entertained. The patient is a 76-year-old woman with a consultative past medical history of a recent hemorrhagic stroke 03/27/2017 setting of being on a call was for atrial fibrillation recently discharged from [facility] to [facility] presents emergency Department with worsening respiratory distress after having a tube feed as well as newly identified left lower extremity cyanosis, cool to touch per history of present illness. On arrival complete history for the patient was unclear and further clarification was obtained by calling facility and discussing with the nurse confirmed that the acute findings were her discolored left lower extremity and her respiratory distress. Otherwise, her right upper and right lower extremity paresis is at her baseline for the past year per the RN. Arrival the patient is uncomfortable with mild dyspnea, afebrile with heart rate in the 120s but vital signs otherwise stable. EKG demonstrates known A. fib without evidence of acute ischemia. Left lower extremity is discolored and cold touch. Unable to obtain dopplerable pulses of the left DP, AT, or popliteal a. Arterial duplex while limited by patient's cooperation demonstrates findings c/w occlusion/subtotal occlusion of the proximal left superficial femoral a...with dampened monophasic flow within the popliteal a and posterior tibial a.". Case was originally discussed with Dr. Alvarez, vascular surgery, when I was under the impression the patient had been resumed on her Eliquis and thus given that he believes she is a poor candidate for a vascular or surgical intervention given her comorbidities and poor baseline functional status (which is bedbound) we initially agreed that heparin was reasonable. However while the patient's CT scan demonstrates interval improvement there is still residual blood products present (3.5x2.5 improved from prior of 4.5x3.5). Upon discussing with the patient's granddaughter she reports that she believes the patient was no longer on Eliquis. Thus heparin drip was discontinued prior to initiation and further information was obtained from the patient's recent discharge that documented discharge plan was not to resume anticoagulation. I discussed the case with our [facility] neurologist on- call, Dr. Kc, who recommended discussion with [facility] neurology team who would be more familiar with the patient's recent hospital course. Subsequently, I d/ w Dr. Yousif, [facility] neurology on-call, who did not take care of the patient during her last admission however was able to review notes and recent imaging and he recommends avoiding anticoagulation if possible given her substantial IPH , despite interval improvement. He does say however that if indicated for a life-threatening condition it could be considered however under ICU observation and frequent neuro checks. I further discussed this update with Dr. Alvarez who recommends that the patient be transferred to [facility] where she is known related to her recent medical course and will be in a tertiary care center should any intervention be determined. I subsequently discussed the case with [facility], correctional corporal Dr. Lee and Vascular Surgery, Dr. Stokes except the patient for transfer. Dr. Stokes will plan to initiate heparin upon arrival to [facility] and her ICU monitoring with close neuro checks. I did discuss these updates with the patient's granddaughter Megan Botello ([phone]) who agrees with transfer. Of note I did have an extensive conversation with the patient's granddaughter regarding the option for comfort care however, while the patient is DNR/DNI, she she dose not feel she is in the position at this time to make that decision. Thus she agrees with transfer for higher level of care. Regarding the patient's respiratory distress on arrival, sx improved with duoneb and steroids. Labs suggesting bronchospastic component with CO2 50s. Otherwise WBC 19. Lactate wnl. Given the patient's mild respiratory distress on arrival the significant leukocytosis treated with broad spectrum ABX with vanco/ cefepime as well as Azithromycin/Flagyl for atypical and anaerobic coverage respectively, particularly given question of aspiration. BNP elevated to 4000s however improved from recent and CXR without evidence of volume overload. Cr 1.6 increased from recent with BUN/Cr > 20 suggesting mild dehydration/ Euvolemia. Given 250cc NS bolus x 2 with improvement in HR to 100s-110s. Patient ordered for home keppra dose. Medication Reconcilliation Current Medication List: was personally reviewed by me Blood Pressure Screening Patient's blood pressure: Elevated blood pressure Blood pressure disposition: Referred to PCP (hospitalist) Consults Time Called: 162 Consulting Physician: Dr. Alvarez, cardiology Returned Call: [phone] I discussed the patient with Dr. Alvarez, vascular surgery - patient poor candidate for vascular/surgical intevention. Will update with formal duplex report when complete. Additional Consults: Time Called: 182 Consulted Physician: Dr. Monsivais, vascular surgery Returned Call: [phone] Additional Comments: I discussed the patient with Dr. Alvarez - vascular surgery. Updated on formal duplex report. And we agree for heparin gtt. He recommends that she follow up with him tomorrow. Time Called: 183 Consulted Physician: Dr. Valentín Barksdale [place] resident: Alfredito Returned Call: [phone] Additional Comments: I discussed the patient with [facility] [place]'s resident: Alfredito - for initial planned admission, however, subsequently plan changed for transfer given patient 's complexity of bleed risk. 2030: I discussed the patient with Leydi Swift neurology. Recommends avoiding anticoagulation if possible given recent IPH. 2116: Dr. Alvarez, ND vascular surgery, updated. Who recommends transfer to [facility] for continuity and higher level of care given patient complexity and bleed risk. 2205: I discussed the patient with Bette Islas-Human Factors Scientist and Bette Oneil- vascular surgery. They accepted patient transfer for ICU admission. The patient is ready to be transferred, just awaiting for a bed. Impression Primary Impression: Arterial occlusion, lower extremity Additional Impression: Respiratory failure with hypoxia and hypercapnia Critical Care I have personally spent greater than 90 minutes of critical care time in the direct management of this patient. This includes bedside care, interpretation of diagnostic studies, and testing, discussion with consultants, patient, and family members, and other required patient management activities. This 90 minutes is in excess of all separately billable procedures. Scribe Attestation The scribe's documentation has been prepared under my direction and personally reviewed by me in its entirety. I confirm that the note above accurately reflects all work, treatment, procedures, and medical decision making performed by me. Departure Information Dispostion Transfer Acute Care Facility Referrals Devante Almonte (PCP) Forms HOME CARE DOCUMENTATION FORM, IMPORTANT VISIT INFORMATION Problem Qualifiers
[2017-04-13 15:34] VITALS: O2SAT 91
--- NOTE | 2017-04-13 15:45 | DIAGNOSTIC IMAGING REPORT ---
CHEST ONE VIEW PORTABLE CLINICAL HISTORY: 76 years-old Female presenting with Evaluate Fever/Sepsis. TECHNIQUE: Portable upright AP view of the chest was obtained. COMPARISON: 03/27/2017. FINDINGS: The patient has been estimated. Atherosclerosis of aortic arch. Cardiac silhouette mildly enlarged as on prior exam. Decreased prominence of pulmonary vasculature. Slight elevation of the bilateral hemidiaphragms with hypoventilatory changes. No other focal opacity. No large effusion or pneumothorax. Osseous structures normal. Upper abdomen normal. IMPRESSION: 1. Mildly low lung volumes with hypoventilatory changes and minimal basilar atelectasis. No focal infiltrate to suggest pneumonia. 2. Cardiomegaly. Electronically signed by: Allan Heath M.D. 04/13/2017 3:43 PM Dictated Date/Time: 04/13/2017 3:42 PM
[2017-04-13 16:06] LABS: ISTAT CREATININE 1.7 mg/dl (0.6-1.3); ISTAT IONIZED CALCIUM 1.19 mmol/l (1.12-1.32); ISTAT POTASSIUM 4.9 mEq/L (3.3-5.0)
[2017-04-13 16:19] LABS: BASO % 0.1 %; BASO ABS # 0.02 K/uL (0-0.2); HEMATOCRIT 42.3 % (37-47); HEMOGLOBIN 14.3 g/dL (12.0-16.0); LYMPH % 7.2 %; LYMPH ABS # 1.42 K/uL (1.2-3.4); MEAN CELL VOLUME 94.6 fL (80-100); MEAN CORPUSCULAR HGB CONC 33.8 g/dl (32-36); MEAN PLATELET VOLUME 10.3 fL (7.4-10.4); MONO % 7.9 %; MONO ABS # 1.56 K/uL (0.11-0.59); NEUT % 84.3 %; NEUT ABS # 16.72 K/uL (1.4-6.5); PLATELET COUNT 275 K/uL (130-400); RED CELL DISTRIBUTION WIDTH CV 14.8 % (11.5-14.5); RED CELL DISTRIBUTION WIDTH SD 50.9 fL (36.4-46.3); WHITE BLOOD COUNT 19.82 K/uL (4.8-10.8)
[2017-04-13] MEDS ORDERED: CEFEPIME IV 1,000 MG in DEXTROSE 5% 100ML 100 ML IV STA (16:28)
[2017-04-13] MEDS ORDERED: METHYLPREDNISOLONE 125 MG VIAL IV STA (16:28)
[2017-04-13] MEDS ORDERED: VANCOMYCIN IV 2,000 MG in SODIUM CHLORIDE 0.9% 500ML 500 ML IV STA (16:28)
[2017-04-13] MEDS ORDERED: VANCOMYCIN CONSULT ACTIVE PRN (16:30)
[2017-04-13] MEDS ORDERED: AZITHROMYCIN IV 500 MG in DEXTROSE 5% 250ML 250 ML IV ONE (16:30)
[2017-04-13 16:31] LABS: INR 1.1 (0.9-1.1); PTT PATIENT 27.5 SECONDS (21.0-31.0)
--- NOTE | 2017-04-13 16:32 | DIAGNOSTIC IMAGING REPORT ---
HEAD CT NONCONTRAST CT DOSE: 537.48 mGy.cm HISTORY: Altered mental status TECHNIQUE: Multiaxial CT images of the head were performed without the use of intravenous contrast. Automated exposure control was utilized for this study. A dose lowering technique was utilized adhering to the principles of ALARA. Comparison: Head CT 03/27/2017. Findings: The fluid level within the right maxillary sinus and sphenoid sinuses. This likely represents acute sinusitis. The mastoid air cells demonstrate trace effusions. No fractures. Improvement in the intracranial hemorrhage compared to the prior study. The dominant interparenchymal focus within the left high convexity measures 3.7 x 2.6 cm. This previously measured 4.6 x 3.3 cm. There is surrounding vasogenic edema. Trace intraventricular hemorrhage has improved. Mild motion artifact. Atrophic changes are again noted within the brain. Encephalomalacia within the left frontal lobe is consistent with an old infarct. This is also unchanged. 4 mm of midline shift is stable to slightly progressed. Subdural hemorrhage has a most completely resolved. Impression: Improvement in the multicompartment intracranial hemorrhage as described above. The 4 mm of right midline shift is stable slightly progressed. Continued follow up is recommended. Sinus disease as described above. Electronically signed by: Jacobo Butler M.D. 04/13/2017 4:31 PM Dictated Date/Time: 04/13/2017 4:25 PM
[2017-04-13] MEDS ORDERED: METO50TA16 PEG (16:39)
[2017-04-13] MEDS ORDERED: DTR/5 PEG (16:44)
[2017-04-13] MEDS ORDERED: [UNRECOGNIZED DRUG - REMARK] PEG (16:45)
[2017-04-13 16:47] LABS: INFLUENZA B ANTIGEN Neg for Influ B (NEG)
[2017-04-13] MEDS ORDERED: SIMV20TA2 PEG (16:48)
[2017-04-13] MEDS ORDERED: NUTR1LIQ94 PEG (16:50)
[2017-04-13] MEDS ORDERED: NYST100010 TD (16:57)
[2017-04-13 17:02] LABS: ALBUMIN 2.7 gm/dl (3.4-5.0); ALT/SGPT 156 U/L (12-78); AST/SGOT 83 U/L (15-37); BLOOD UREA NITROGEN 48 mg/dl (7-18); CALCIUM 8.8 mg/dl (8.5-10.1); CARBON DIOXIDE 27 mmol/L (21-32); GLUCOSE 131 mg/dl (70-99); LIPASE 129 U/L (73-393); POTASSIUM 5.2 mmol/L (3.5-5.1); SODIUM 138 mmol/L (136-145)
[2017-04-13] MEDS ORDERED: ACET-1311 PEG (17:02)
[2017-04-13] MEDS ORDERED: AMLO-114 PEG (17:04)
[2017-04-13 17:08] LABS: ALKALINE PHOSPHATASE 101 U/L (45-117); TOTAL PROTEIN 6.5 gm/dl (6.4-8.2)
[2017-04-13] MEDS ORDERED: IPRASOL4 INH (17:09)
[2017-04-13] MEDS ORDERED: KPP/1000 PEG (17:12)
[2017-04-13] MEDS ORDERED: SODIUM CHLORIDE 0.9% 250ML 250 ML IV STA ×2 (18:04→19:55)
--- NOTE | 2017-04-13 18:08 | DIAGNOSTIC IMAGING REPORT ---
ULTRASOUND L VENOUS DOPP LOWER EXT UNILAT CLINICAL HISTORY: Left lower extremity cyanosis. No obtainable pulse. COMPARISON STUDY: No previous studies for comparison. FINDINGS: Real-time and color flow Doppler imaging were performed. Flow was seen within the femoral, popliteal and calf veins with no intraluminal thrombus demonstrated. The saphenous vein is patent. IMPRESSION: No evidence of left lower extremity DVT. Electronically signed by: Jed Godwin M.D. 04/13/2017 6:06 PM Dictated Date/Time: 04/13/2017 6:06 PM
--- NOTE | 2017-04-13 18:14 | DIAGNOSTIC IMAGING REPORT ---
ARTERIAL DOPPLER ULTRASOUND OF THE LEFT LOWER EXTREMITY CLINICAL HISTORY: Left leg pain and discoloration. No obtainable pulse. COMPARISON STUDY: No previous studies for comparison. FINDINGS: The technologist was unable to complete the examination, as the patient requested on multiple occasions to stop the examination. There is monophasic flow within the common femoral artery. There is very low velocity dampened monophasic proximal superficial femoral artery waveforms with minimal color flow. The findings are indicative of an occlusion/subtotal occlusion. There is dampened monophasic flow within the popliteal artery. There is dampened monophasic flow within the posterior tibial artery. Ankle arm indices were not obtained. IMPRESSION: 1. The patient would not allow completion of the examination 2. 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 04/13/2017 6:13 PM Dictated Date/Time: 04/13/2017 6:07 PM
[2017-04-13 18:57] VITALS: Ht 167.6 cm; Wt 88.5 kg
[2017-04-13] MEDS ORDERED: HEPARIN 25000 UNIT/500 ML D5W ONE (19:08)
[2017-04-13] MEDS ORDERED: METRONIDAZOLE 500MG / 100ML NSS IV STA (19:55)
[2017-04-14] MEDS ORDERED: SODIUM CHLORIDE 0.9% 500ML 500 ML IV STA (00:49)
[2017-04-14] MEDS ORDERED: LEVETIRACETAM IV 1,000 MG in DEXTROSE 5% 100ML 100 ML IV ONE (01:00)
[2017-04-14 01:47] VITALS: BP 130/102; PULSE 105; O2SAT 96
--- NOTE | 2017-04-15 15:28 | Pharmacy Progress Note ---
ED Pharmacist Culture FollowUp Date of Service: Apr 15, 2017. Urine Cx from 04/13/17 is growing enterococcus faecalis >100,000 CFU/mL Pt was transferred to [facility] on 04/13 for SOB and arterial occlusions lower ext. I contacted [facility] and spoke with RN where pt is located. Faxed culture results to [phone] per RNs request.
== END 2017-04-14 02:01 | disposition short-term general hospital (02) ==
LOC: EDBD 15:09 → C.EDC 15:10
DX: I74.3 Embolism and thrombosis of arteries of the lower extremities (principal); J96.91 Respiratory failure, unspecified with hypoxia; J96.92 Respiratory failure, unspecified with hypercapnia; J96.20 Acute and chronic respiratory failure, unspecified whether with hypoxia or hypercapnia; I48.91 Unspecified atrial fibrillation; Z86.73 Personal history of transient ischemic attack (TIA), and cerebral infarction without residual deficits; Z87.891 Personal history of nicotine dependence; Z79.899 Other long term (current) drug therapy

== ENCOUNTER → 2017-09-08 | Outpatient (CLI) | payer OTHER ==
[~2017-09-08] MED LIST changes: +ACET-1311 PEG; +AMLO10TA3 PEG; -ATOR-24 PO; +DTR/5 PEG; -ELQ25 PO; -FURO-85 PO; +IPRA-64 INH; +KPP/1000 PEG; +METO50TA16 PEG; +NUTR1LIQ94 PEG; +NYST100010 TD; +SIMV20TA2 PEG; -TPRSR25 PO; -TPRSR50 PO; +[UNRECOGNIZED DRUG - REMARK] PEG
--- NOTE | 2017-09-08 12:55 | DIAGNOSTIC IMAGING REPORT ---
VIDEO SWALLOW HISTORY: DYSPHAGIA TECHNIQUE: Video fluoroscopic evaluation of swallowing was performed in the AP and lateral projections by the speech pathology staff. The patient is fed nectar-thick and thin liquid barium, a barium coated wafer, and barium pudding. FLUOROSCOPY TIME: 2.1 minutes. A cine loop was submitted. COMPARISON STUDY: None. FINDINGS: There is premature spillover. There is normal hyoid excursion and epiglottic deflection. No significant penetration or aspiration identified. Swallowing function is within normal limits. The patient was unable to swallow the barium coated cracker. IMPRESSION: 1. No aspiration identified. 2. Please see the speech pathologist report for detailed findings and recommendations. Electronically signed by: Jacobo Butler M.D. 09/08/2017 12:54 PM Dictated Date/Time: 09/08/2017 12:52 PM
--- NOTE | 2017-09-09 09:41 | SWALLOWING EVALUATION ---
HISTORY: This 76 year old woman was referred for a video swallow study at [facility] in order to rule out aspiration and identify the safest consistencies for optimal oral intake. 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 She is a resident of [facility]. Limited information provided regarding the patient's current swallowing status. Attempted to ask the patient however she was unable to provide any reliable responses. The patient stated "I mostly drink liquids" but again, uncertain if this is reliable. Uncertain as to her current diet consistency. PROCEDURE: The patient was seen in the Radiology Department of [facility] for the V[facility]SS. Cursory examination of the oral cavity revealed the patient to be edentulous. Patient was unable to state if she has dentures. She was unable to follow directions to complete a full oral motor examination. Informal assessment completed. Strength and ROM of the articulators revealed generalized weakness and mild dysarthria. She was intelligible. The patient was seated upright on a [employer] Videofluoroscpy chair and was viewed in the Lateral plane. The Anterior-Posterior (A-P) plane was deferred due to positioning constraints. In the lateral plane, the patient was given the following boluses: 1 tsp. thin liquid barium x 2, single swallow thin liquid barium self-presented from a cup, serial swallows of thin liquid barium self-presented via straw, 1 tsp. nectar-thick liquid barium, single swallow nectar-thick liquid barium self-presented from a cup, 1 tsp. barium pudding, and 1 club cracker coated in barium pudding. RESULTS: Oral Stage: Lip closure was adequate. The patient was unable to maintain a cohesive liquid bolus in the oral cavity during the liquid bolus hold task. There was evidence of escape to the lateral buccal cavity and floor of the mouth. There was minimal mastication with the majority of solid boluses being un-chewed. Lingual motion for bolus transport was slowed. There was retention lining the tongue, palate, and lateral sulci after the initial swallow. The initiation of the pharyngeal swallow was delayed and occurred when the bolus head reached the pyriforms. Moderate oral stage dysphagia. The patient was able to propel and swallow the pudding bolus with minimal difficulty, however she was unable to effectively masticate the cracker and this was removed from her mouth. Pharyngeal Stage: Soft palate elevation was complete. Laryngeal elevation revealed partial superior movement of the thyroid cartilage and partial approximation of the arytenoids to the epiglottic base. Anterior hyoid excursion was partially reduced and epiglottic deflection was complete. Laryngeal vestibular closure was in-complete with a narrow column of air being located in the vestibule at the height of the swallow. The pharyngeal stripping wave was present yet diminished. Pharyngeal contraction was unable to be assessed. There was partial distention and duration of the opening to the pharyngoesophageal segment (PES). Tongue base retraction was partially reduced with a narrow column of contrast located between the tongue base and pharyngeal wall during the swallow. There was mild retention located in the valleculae and pyriforms after the swallow. Mild pharyngeal stage dysphagia due to delayed swallow initiation and generalized weakness of the pharyngeal musculature. There was no evidence of laryngeal penetration or aspiration for this study. Esophageal stage: In the lateral view, there was evidence of a small cricopharyngeus impression. SUMMARY/RECOMMENDATIONS: This patient presents with moderate oral, mild pharyngeal stage dysphagia. The following is recommended: 1. Pureed diet and thin liquids. 2. Aspiration precautions: FULLY UPRIGHT for meals and for 30 minutes after meals. Straws OK. 3. Safe swallow strategies: Alternate solids and liquids. 4. Follow up with speech therapy services at the [facility] for carryover of diet and safe swallow strategies. Trial soft solids with [employer] services (should the patient have dentures and is agreeable to wearing them) to determine tolerance with ability to masticate for a possible diet upgrade as appropriate. A summary of the results and recommendations was discussed with the patient immediately following the study. Uncertain as to if the patient was able to fully comprehend results. A written summary of the study results was provided to the patient on the video swallow worksheet. Thank you for referral of this patient. Please contact me at if any additional information is needed.
== END | disposition home or self-care (01) ==
LOC: C.RAD 12:13
PROVIDERS: ATTEND Internal Medicine
DX: R13.10 Dysphagia, unspecified (principal)